=== PATIENT | male | born 1985 | race African-American/Black ===

== ENCOUNTER 2018-04-21 01:51 | Emergency (ER) | payer BC, OTHER ==
[2018-04-21 01:59] VITALS: BP 127/80; PULSE 78; RESP 18; TEMP 98.3
--- NOTE | 2018-04-21 02:37 | XR ---
EXAMINATION TYPE: XR foot complete LT DATE OF EXAM: 04/21/2018 COMPARISON: NONE HISTORY: Foot pain TECHNIQUE: 3 views FINDINGS: Metatarsals appear intact. There is a lucent line through the anterior navicular bone on th e lateral view that could be nondisplaced chip fracture. Joint spaces are normal. The toes are intact . IMPRESSION: Possible nondisplaced acute chip fracture of the anterior navicular.
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
== END 2018-04-21 02:55 | disposition home or self-care (01) ==
LOC: EC 01:51
DX: S92.255A Nondisplaced fracture of navicular [scaphoid] of left foot, initial encounter for closed fracture (principal); F17.200 Nicotine dependence, unspecified, uncomplicated; X50.9XXA Other and unspecified overexertion or strenuous movements or postures, initial encounter; Y93.67 Activity, basketball
CPT/HCPCS: 29515; 99283

== ENCOUNTER 2020-07-15 01:42 | Emergency (ER) | payer BC ==
[2020-07-15] MEDS ORDERED: SODIUM CHLORIDE 0.9% 1,000 ML IV STA (01:55)
[2020-07-15] MEDS ORDERED: METOCLOPRAMIDE 5 MG/ML 2 ML VIAL IVP STA (01:55)
[2020-07-15] MEDS ORDERED: diphenhydrAMINE 50 MG/ML 1 ML VIAL IVP STA (01:56)
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
--- NOTE | 2020-07-15 02:43 | CT ---
EXAM: CT Head Without Intravenous Contrast CLINICAL HISTORY: ITS.REASON CT Reason: headache TECHNIQUE: Axial computed tomography images of the head/brain without intravenous contrast. CTDI is 49.27 mGy and DLP is 1078.4 mGy-cm. This CT exam was performed using one or more of the following dose reduction techniques: automated exposure control, adjustment of the mA and/or kV according to patient size, and/or use of iterative reconstruction technique. COMPARISON: No relevant prior studies available. FINDINGS: Brain: No hemorrhage or mass effect. Ventricles: No hydrocephalus. Bones/joints: Unremarkable. Soft tissues: Unremarkable. Sinuses: Unremarkable. Mastoid air cells: Clear. IMPRESSION: No acute hemorrhage, hydrocephalus, or mass effect.
[2020-07-15] MEDS ORDERED: PROMETHAZINE INJ 25 MG in SODIUM CHLORIDE 0.9% 50 ML IVPB STA (02:51)
[2020-07-15] MEDS ORDERED: DEXAMETHASONE SOD PHOSPHATE 10 MG/ML 1 ML VIAL IV STA (02:52)
[2020-07-15] MEDS ORDERED: ORPHENADRINE 30 MG/ML 2 ML VIAL IVP STA (02:55)
[2020-07-15 04:23] VITALS: BP 102/63; PULSE 72; RESP 18; TEMP 98.7
== END 2020-07-15 04:24 | disposition home or self-care (01) ==
LOC: EC 01:42
DX: R51.9 Headache, unspecified (principal); F17.200 Nicotine dependence, unspecified, uncomplicated; Z86.69 Personal history of other diseases of the nervous system and sense organs
CPT/HCPCS: 70450; 99284; 96374; 96375 ×4; 96361; J1200; J1100; J2360; J2550; J2765

== ENCOUNTER 2020-10-03 14:28 | Emergency (ER) | payer BC ==
[2020-10-03 14:45] VITALS: BP 132/73; RESP 18
[2020-10-03] MEDS ORDERED: IBUPROFEN 600 MG TAB PO STA (14:51)
[2020-10-03] MEDS ORDERED: ACETAMINOPHEN TAB 500 MG TAB PO STA (14:51)
--- NOTE | 2020-10-03 15:22 | XR ---
EXAMINATION TYPE: XR chest 2V DATE OF EXAM: 10/03/2020 COMPARISON: Chest x-ray 01/27/2014 HISTORY: Cough and shortness of breath TECHNIQUE: Frontal and lateral views of the chest are obtained. FINDINGS: Exam is rotated. There is bronchial wall thickening. There is no focal air space opacity, p leural effusion, or pneumothorax seen. The cardiac silhouette size is within normal limits. The os seous structures are intact. IMPRESSION: Correlate for bronchitis, reactive airways disease, follow-up as indicated.
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
[2020-10-03 15:45] LABS: SARS-CoV-2 RNA Rapid Abbott Not Detected (Not Detectd)
[2020-10-03 16:11] VITALS: PULSE 90; TEMP 100.9
== END 2020-10-03 16:21 | disposition home or self-care (01) ==
LOC: EC 14:28
DX: J40 Bronchitis, not specified as acute or chronic (principal); J06.9 Acute upper respiratory infection, unspecified; F17.200 Nicotine dependence, unspecified, uncomplicated; Z20.822 Contact with and (suspected) exposure to COVID-19
CPT/HCPCS: 71046; 87081; 87430; 87635; 99284

== ENCOUNTER 2021-05-31 08:51 | Emergency (ER) | payer BC ==
[2021-05-31 08:57] VITALS: RESP 18; TEMP 98.4
--- NOTE | 2021-05-31 09:41 | XR ---
EXAMINATION TYPE: XR chest 2V DATE OF EXAM: 05/31/2021 COMPARISON: Chest x-ray October 03, 2020 HISTORY: Cough and fever. TECHNIQUE: Frontal and lateral views of the chest are obtained. FINDINGS: There is no new suspicious focal air space opacity, pleural effusion, or pneumothorax seen . Persistent central perihilar peribronchial cuffing bilaterally. The cardiac silhouette size is sta ble and within normal limits. The osseous structures are intact. IMPRESSION: Central perihilar peribronchial cuffing consistent with reactive airway disease possibly from a viral bronchiolitis
[2021-05-31] MEDS ORDERED: DEXAMETHASONE SOD PHOSPHATE 10 MG/ML 1 ML VIAL IM STA (09:53)
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
[2021-05-31 10:32] VITALS: BP 122/82; PULSE 84
== END 2021-05-31 10:32 | disposition home or self-care (01) ==
LOC: EC 08:51
DX: U07.1 COVID-19 (principal); F17.200 Nicotine dependence, unspecified, uncomplicated
CPT/HCPCS: 87502; 87635; 71046; 99283; 96372; J1100

== ENCOUNTER 2021-07-22 18:51 | Emergency (ER) | payer BC ==
[2021-07-22 20:15] VITALS: RESP 18
[2021-07-22 21:16] VITALS: BP 104/66; PULSE 56; TEMP 98.2
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
== END 2021-07-22 21:27 | disposition home or self-care (01) ==
LOC: EC 18:51
DX: F17.200 Nicotine dependence, unspecified, uncomplicated (principal); Z20.822 Contact with and (suspected) exposure to COVID-19
CPT/HCPCS: 87635; 99283

== ENCOUNTER 2022-12-01 12:25 | Emergency (ER) | payer BC, OTHER ==
[2022-12-01 12:33] VITALS: TEMP 98.1
[2022-12-01] MEDS ORDERED: ACETAMINOPHEN TAB 325 MG TAB PO STA (12:51)
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
--- NOTE | 2022-12-01 13:48 | XR ---
EXAMINATION TYPE: XR hand complete RT DATE OF EXAM: 12/01/2022 CLINICAL HISTORY: Laceration injury with pain TECHNIQUE: Frontal, lateral and oblique images of the right hand are obtained. COMPARISON: None. FINDINGS: There is no acute fracture/dislocation evident in the right hand. The joint spaces in the right hand appear within normal limits. [id number] soft tissue swelling proximal aspect of the second finger is seen without definitive radiodense foreign body. IMPRESSION: As above.
[2022-12-01] MEDS ORDERED: BACITRACIN OINT 1 EACH PACKET TOPICAL ONE (14:14)
[2022-12-01 15:08] VITALS: BP 109/66; PULSE 60; RESP 16
== END 2022-12-01 15:08 | disposition home or self-care (01) ==
LOC: EC 12:25
DX: S61.210A Laceration without foreign body of right index finger without damage to nail, initial encounter (principal); F17.200 Nicotine dependence, unspecified, uncomplicated; F12.90 Cannabis use, unspecified, uncomplicated; Y04.0XXA Assault by unarmed brawl or fight, initial encounter
CPT/HCPCS: 12001; 99283